=== PATIENT | male | born 1995 | race Hispanic/Latino ===

== ENCOUNTER 2023-10-08 20:29 | Emergency (ER) | payer BC ==
--- OUTSIDE RECORDS SUMMARY | 2023-10-08 20:32 | XMS REPORT | Continuity of Care Document ---
Author Name Unknown Address [address] [place] [address] Shahbaz. [address] thconnect Address [address] [facility] Shahbaz. 1 [address] [place] [address] Care Team Providers Care Bradder Name Role Phone [email or web address]_Giles_M Attending Clinician Unavailabl e GC_TFCLLC_Giles_M Admitting Clinician Unavailabl e Payers Payer Name Policy Type Policy Number Effective Date Expirati on Date Source [place] [id number] 2022 00:00:00 2023 00:00:00 Encounters Start Date/Time End Date/Time Encounter Type Admission Type Attending Clinicians Care Facility Care Department Encounter ID Source 2023-04-01 00:00:00 2023-04-01 00:00:00 Outpatient GC_TFCLLC_G iles_M PRIV PRIV [id number] [facility] 2023-03-31 00:00:00 2023-03-31 00:00:00 Outpatient GC_TFCLLC_G iles_M PRIV PRIV [id number] [facility] 2023-03-27 00:00:00 2023-03-27 00:00:00 Outpatient PRIV PRIV [id number] [facility]
[2023-10-08] MEDS ORDERED: IBUPROFEN 400 MG TAB ONE (21:29)
[2023-10-08] MEDS ORDERED: IBUPROFEN 200 MG TAB PO ONE (21:29)
--- NOTE | 2023-10-08 21:56 | RAD REPORT ---
EXAM DESCRIPTION: CT - Head C Spine Mpr Wo Con - 10/08/2023 9:22 pm CLINICAL HISTORY: Head and neck injury status post fall. Head and neck pain COMPARISON: None. TECHNIQUE: Computed axial tomography of the head and cervical spine was obtained. Sagittal and coronal reconstruction was performed. All CT scans are performed using dose optimization technique as appropriate and may include automated exposure control or mA/KV adjustment according to patient size. FINDINGS: An intracranial bleed is not seen. The ventricles are normal in caliber. No significant hypodensity within the brain. 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 Mild left maxillary sinusitis A cervical fracture is not visualized. No dislocation is noted. IMPRESSION: No acute intracranial abnormality is seen. A cervical fracture is not visualized. If the patient continues to have symptoms to suggest intracranial /spinal cord pathology then MRI wou ld be recommended
--- NOTE | 2023-10-08 21:58 | RAD REPORT ---
EXAM DESCRIPTION: RAD - Shoulder Left 2 View - 10/08/2023 9:26 pm CLINICAL HISTORY: Left shoulder pain status post trauma FINDINGS: No fracture or dislocation is seen.
--- NOTE | 2023-10-08 22:03 | EDPHYS ---
Physician Documentation [facility] Name: Checo Foy Age: 28 yrs Sex: Male : 1995 Arrival Date: 10/08/2023 Time: 20:29 Bed 11 Private MD: ED Physician Trenton Oscar HPI: 10/07 21:08 This 28 yrs old Male presents to ER via Ambulatory with complaints of Shoulder roshan Injury, Head Injury-Adult. 21:08 The patient or guardian complains of decreased range of motion, pain, that is acute. roshan left shoulder. Context: The problem was sustained at a sports field or court. Onset: The symptoms/episode began/occurred just prior to arrival. Modifying factors: the symptoms are alleviated by ice, remaining still, The symptoms are aggravated by movement, rotation of arm. Associated signs and symptoms: Pertinent positives: neck pain. Severity of symptoms: At their worst the symptoms were moderate, in the emergency department the symptoms have improved, moderately. Treatment prior to arrival includes: thanh wrap. The patient has not experienced similar symptoms in the past. Historical: - Allergies: 20:51 No Known Allergies; vc1 - Home Meds: 20:51 None [Active]; vc1 - PMHx: 20:51 None; vc1 - PSHx: 20:51 None; vc1 - Immunization history:: Client reports having NOT received the Covid vaccine. - Infectious Disease History:: Denies. - Social history:: Smoking status: Patient denies any tobacco usage or history of. - Family history:: not pertinent. ROS: 21:08 Constitutional: Negative for fever, chills, and weight loss, Eyes: Negative for injury, roshan pain, redness, and discharge, ENT: Negative for injury, pain, and discharge, Neck: Negative for injury, pain, and swelling, Cardiovascular: Negative for chest pain, palpitations, and edema, Respiratory: Negative for shortness of breath, cough, wheezing, and pleuritic chest pain, Abdomen/GI: Negative for abdominal pain, nausea, vomiting, diarrhea, and constipation, Back: Negative for injury and pain, : Negative for injury, bleeding, discharge, and swelling, Skin: Negative for injury, rash, and discoloration, Psych: Negative for depression, anxiety, suicide ideation, homicidal ideation, and hallucinations, Allergy/Immunology: Negative for hives, rash, and allergies, Endocrine: Negative for neck swelling, polydipsia, polyuria, polyphagia, and marked weight changes, Hematologic/Lymphatic: Negative for swollen nodes, abnormal bleeding, and unusual bruising, 21:08 MS/extremity: Positive for decreased range of motion, pain, tenderness, of the anterior aspect of left shoulder and posterior aspect of left shoulder, 21:08 Neuro: Positive for headache, Exam: 21:08 Constitutional: This is a well developed, well nourished patient who is awake, alert, roshan and in no acute distress. Eyes: Pupils equal round and reactive to light, extra-ocular motions intact. Lids and lashes normal. Conjunctiva and sclera are non-icteric and not injected. Cornea within normal limits. Periorbital areas with no swelling, redness, or edema. ENT: Nares patent. No nasal discharge, no septal abnormalities noted. Tympanic membranes are normal and external auditory canals are clear. Oropharynx with no redness, swelling, or masses, exudates, or evidence of obstruction, uvula midline. Mucous membranes moist. Chest/axilla: Normal chest wall appearance and motion. Nontender with no deformity. No lesions are appreciated. Cardiovascular: Regular rate and rhythm with a normal S1 and S2. No gallops, murmurs, or rubs. Normal PMI, no JVD. No pulse deficits. Respiratory: Lungs have equal breath sounds bilaterally, clear to auscultation and percussion. No rales, rhonchi or wheezes noted. No increased work of breathing, no retractions or nasal flaring. Abdomen/GI: Soft, non-tender, with normal bowel sounds. No distension or tympany. No guarding or rebound. No evidence of tenderness throughout. Back: No spinal tenderness. No costovertebral tenderness. Full range of motion. Male : Normal genitalia with no discharge or lesions. Skin: Warm, dry with normal turgor. Normal color with no rashes, no lesions, and no evidence of cellulitis. Neuro: Awake and alert, GCS 15, oriented to person, place, time, and situation. Cranial nerves II-XII grossly intact. Motor strength 5/5 in all extremities. Sensory grossly intact. Cerebellar exam normal. Normal gait. Psych: Awake, alert, with orientation to person, place and time. Behavior, mood, and affect are within normal limits. 21:08 Head/face: Noted is contusion, tenderness, that is moderate, of the left ear, left temporal area and left occipital area, 21:08 Neck: External neck: is normal, no acute changes, C-spine: appears grossly normal, no acute changes, Thyroid: appears normal, Trachea: is midline with no obvious abnormalities, ROM/movement: pain, that is mild, with rotation to the left, Vital Signs: 20:47 BP 131 / 76; Pulse 73; Resp 17; Temp 98.2; Pulse Ox 98% ; Weight 65.77 kg; Height 5 ft. vc1 6 in. ; Pain 5/10; 21:47 BP 121 / 70; Pulse 69; Resp 18; Pulse Ox 99% on R/A; tl4 22:30 BP 110 / 66; Pulse 64; Resp 16; Temp 98(O); Pulse Ox 100% on R/A; Pain 4/10; tl4 20:47 Body Mass Index 23.40 (65.77 kg, 167.64 cm) vc1 20:47 Pain Scale: Adult vc1 22:30 Pain Scale: Adult tl4 MDM: 20:39 Patient medically screened. roshan 21:11 Differential diagnosis: humeral head fracture, glenoid fracture, DJD, tendonitis. Data roshan reviewed: vital signs, nurses notes, radiologic studies, CT scan. Consideration of Admission/Observation Escalation of care including admission/observation considered. I considered the following discharge prescriptions or medication management in the emergency department Medications were administered in the Emergency Department. See MAR. Independent interpretation of the following test(s) in the Emergency Department CT Scan: My interpretation is ct head and c spine neg. Test considered but Not performed: EKG: no ekg. Historians other than the Patient: pt well informed. Care significantly affected by the following chronic conditions: none. 10/07 21:08 Order name: Shoulder Left (2 View) XRAY roshan 10/07 21:08 Order name: CT Head C Spine roshan Administered Medications: 22:30 CANCELLED (Patient Refused): [id number] mg PO once tl4 Disposition Summary: 10/08/23 22:02 Discharge Ordered Notes: Location: Home roshan Problem: new roshan Symptoms: have improved roshan Condition: Stable roshan Diagnosis - Contusion of left shoulder roshan - Sprain of left acromioclavicular joint, initial encounter roshan - Unspecified injury of head, initial encounter roshan - Strain of muscle, fascia and tendon at neck level, initial encounter roshan - Abnormal findings on diagnostic imaging of other specified body structures - 3.6 roshan ragweed cyst left temporal fossa - Acute maxillary sinusitis, unspecified - mild rsohan Followup: roshan - With: Private Physician - When: 2 - 3 days - Reason: Recheck today's complaints, Continuance of care, Re-evaluation by your physician Followup: roshan - With: Brian Coleman MD - When: 2 - 3 days - Reason: Recheck today's complaints, Re-evaluation by your physician Followup: roshan - With: Terence Murdock MD - When: 2 - 3 days - Reason: Recheck today's complaints, Re-evaluation by your physician Discharge Instructions: - Discharge Summary Sheet roshan - Head Injury, Adult roshan - Sinusitis, Adult roshan - Cervical Sprain roshan - Cervical Sprain, [id number] roshan - Shoulder Sprain roshan - Incidental Abnormal Radiological Finding roshan - Head Injury, Adult, [id number] Forms: - Medication Reconciliation Form roshan - Antibiotic Education roshan - Prescription Opioid Use roshan - Patient Portal Instructions [facility] - Leadership Thank You Letter [facility] Prescriptions: - Ibuprofen 600 mg Oral Tablet - take 1 tablet ORAL route every 6 hours As needed take with food; 30 tablet; [facility] Refills: 0, Product Selection Permitted - Cyclobenzaprine 5 mg Oral Tablet - take 1 tablet ORAL route 3 times per day As needed; 15 tablet; Refills: 0, [facility] Product Selection Permitted Signatures: Dispatcher [employer] Trenton Kerr MD MD cha Calcote, Vanessa RN RN vc1 Silver England RN tl4 Corrections: (The following items were deleted from the chart) 21:08 21:08 Shoulder Left 2 View+RAD.RAD.BRZ ordered. EDOR EDMS 21:08 21:08 Head C Spine MPR Wo Con+CT.RAD.BRZ ordered. EDOR EDMS 22:30 21:08 Ibuprofen PO 600 mg PO once ordered. [facility] tl4
--- NOTE | 2023-10-08 22:03 | ER ---
Nurse's Notes [facility] Name: Checo Foy Age: 28 yrs Sex: Male : 1995 Arrival Date: 10/08/2023 Time: 20:29 Bed 11 Private MD: Diagnosis: Contusion of left shoulder;Sprain of left acromioclavicular joint, initial encounter;Unspecified injury of head, initial encounter;Strain of muscle, fascia and tendon at neck level, initial encounter;Abnormal findings on diagnostic imaging of other specified body structures-3.6 ragweed cyst left temporal fossa;Acute maxillary sinusitis, unspecified-mild Presentation: 10/07 20:47 Chief complaint: Patient states: ran into bigger daniel playing softball hit left shoulder vc1 and left side of head. I fell back and may have hit back of head on the ground. Coronavirus screen: Vaccine status: Client denies travel out of the [place] in the last 14 days. At this time, the client does not indicate any symptoms associated with coronavirus-19. Ebola Screen: Patient negative for fever greater than or equal to 101.5 degrees Fahrenheit, and additional compatible Ebola Virus Disease symptoms Patient denies exposure to infectious person. Patient denies travel to an Ebola-affected area in the 21 days before illness onset. No symptoms or risks identified at this time. Initial Sepsis Screen: Does the patient meet any 2 criteria? No. Patient's initial sepsis screen is negative. Does the patient have a suspected source of infection? No. Patient's initial sepsis screen is negative. Risk Assessment: Do you want to hurt yourself or someone else? Patient reports no desire to harm self or others. Onset of symptoms was October 08, 2023 at 18:45. 20:47 Method Of Arrival: Ambulatory vc1 20:47 Acuity: JAYLIN 4 vc1 Triage Assessment: 21:54 General: Appears in no apparent distress. Injury Description: Head injury. tl4 Historical: - Allergies: 20:51 No Known Allergies; vc1 - Home Meds: 20:51 None [Active]; vc1 - PMHx: 20:51 None; vc1 - PSHx: 20:51 None; vc1 - Immunization history:: Client reports having NOT received the Covid vaccine. - Infectious Disease History:: Denies. - Social history:: Smoking status: Patient denies any tobacco usage or history of. - Family history:: not pertinent. Screenin:55 Abuse screen: Denies threats or abuse. Nutritional screening: No deficits noted. vc1 Tuberculosis screening: No symptoms or risk factors identified. 21:48 [facility] ED Fall Risk Assessment (Adult) History of falling in the last 3 months, tl4 including since admission No falls in past 3 months (0 pts) Confusion or Disorientation No (0 pts) Intoxicated or Sedated No (0 pts) Impaired Gait No (0 pts) Mobility Assist Device Used No (0 pt) Altered Elimination No (0 pt) Score/Fall Risk Level 0 - 2 = Low Risk Oriented to surroundings, Maintained a safe environment, Educated pt \T\ family on fall prevention, incl call for assistance when getting out of bed, Assessed \T\ reinforced patient's understanding of fall precautions. Assessment: 21:45 General: Appears in no apparent distress. Behavior is calm, cooperative. Pain: tl4 Complains of pain in left arm and left occipital area and left temporal area and left ear and posterior aspect of left shoulder and left shoulder. Neuro: Level of Consciousness is awake, alert, obeys commands, Oriented to person, place, time, situation, Moves all extremities. Full function Gait is steady, Speech is normal, Facial symmetry appears normal, Pupils are PERRLA. Cardiovascular: Capillary refill < 3 seconds Patient's skin is warm and dry. Respiratory: Airway is patent Respiratory effort is even, unlabored, Respiratory pattern is regular, symmetrical, Breath sounds are clear bilaterally. GI: No signs and/or symptoms were reported involving the gastrointestinal system. : No signs and/or symptoms were reported regarding the genitourinary system. EENT: No signs and/or symptoms were reported regarding the EENT system. Derm: No signs and/or symptoms reported regarding the dermatologic system. Musculoskeletal: Reports pain in left arm and posterior aspect of left shoulder and anterior aspect of left shoulder and left shoulder. 21:54 Reassessment: Pt does not want pain medications at this time. He states he will let RN tl4 know if he needs them. Pt denies any other needs at this time. Will continue to monitor. Vital Signs: 20:47 BP 131 / 76; Pulse 73; Resp 17; Temp 98.2; Pulse Ox 98% ; Weight 65.77 kg; Height 5 ft. vc1 6 in. ; Pain 5/10; 21:47 BP 121 / 70; Pulse 69; Resp 18; Pulse Ox 99% on R/A; tl4 22:30 BP 110 / 66; Pulse 64; Resp 16; Temp 98(O); Pulse Ox 100% on R/A; Pain 4/10; tl4 20:47 Body Mass Index 23.40 (65.77 kg, 167.64 cm) vc1 20:47 Pain Scale: Adult vc1 22:30 Pain Scale: Adult tl4 ED Course: 20:32 Patient arrived in ED. mr 20:39 Trenton Oscar MD is Attending Physician. roshan 20:51 Triage completed. vc1 20:55 Arm band placed on right wrist. vc1 21:23 CT Head C Spine In Process Unspecified. EDMS 21:27 Shoulder Left (2 View) XRAY In Process Unspecified. EDMS 21:49 Patient has correct armband on for positive identification. Bed in low position. Call tl4 light in reach. Side rails up X 1. Provided Education on: ed process, call [place]. Client placed on continuous cardiac and pulse oximetry monitoring. NIBP monitoring applied. Door closed. Noise minimized. Moved to private room. 21:49 No provider procedures requiring assistance completed. Patient did not have IV access tl4 during this emergency room visit. 21:54 Silver England RN is Primary Nurse. tl4 22:00 Brian Coleman MD is Referral Physician. [facility] 22:02 Terence Murdock MD is Referral Physician. roshan Administered Medications: 22:30 CANCELLED (Patient Refused): [id number] mg PO once tl4 Medication: 21:47 VIS not applicable for this client. tl4 Outcome: 22:02 Discharge ordered by . roshan 22:30 Discharged to home ambulatory, tl4 22:30 Condition: stable 22:30 Discharge instructions given to patient, Instructed on discharge instructions, follow up and referral plans. medication usage, Demonstrated understanding of instructions, follow-up care, medications, Prescriptions given X 2, 22:31 Patient left the ED. tl4 Signatures: Dispatcher [employer] EDMS Trenton Oscar MD MD cha Rivera, Mary, Reg Reg mr Kalli Jacobs RN RN vc1 Silver England RN RN tl4
[2023-10-08 22:51] VITALS: BP 110/66; TEMP 98; O2SAT 100
== END 2023-10-08 22:31 | disposition home or self-care (01) ==
LOC: ER 20:29
DX: S43.52XA Sprain of left acromioclavicular joint, initial encounter (principal); S40.012A Contusion of left shoulder, initial encounter; S16.1XXA Strain of muscle, fascia and tendon at neck level, initial encounter; S09.90XA Unspecified injury of head, initial encounter; W03.XXXA Other fall on same level due to collision with another person, initial encounter; Y93.79 Activity, other specified sports and athletics; Y92.39 Other specified sports and athletic area as the place of occurrence of the external cause; J01.00 Acute maxillary sinusitis, unspecified; R93.89 Abnormal findings on diagnostic imaging of other specified body structures; L23.7 Allergic contact dermatitis due to plants, except food
CPT/HCPCS: 70450; 72125; 99283